=== PATIENT | female | born 1960 | race Caucasian/White ===

== ENCOUNTER 2017-04-03 11:18 | Emergency (ER) | payer OTHER ==
[~2017-04-03] VITALS: Ht 165.1 cm; Wt 64.6 kg
[2017-04-03 12:40] LABS: PATH.CAST-FLAG NOT PRESENT; SPERM-FLAG NOT PRESENT; SRC-FLAG NOT PRESENT; XTAL-FLAG NOT PRESENT; YLC-FLAG NOT PRESENT
[2017-04-03] MEDS ORDERED: KETOROLAC 30 MG/1 ML IVPush ONE (13:00)
[2017-04-03] MEDS ORDERED: SODIUM CHLORIDE FLUSH 10ML SYR IVF ONE (13:00)
[2017-04-03] MEDS ORDERED: ONDANSETRON 2MG/ML, 2ML IVPush ONE (13:00)
[2017-04-03] MEDS ORDERED: SODIUM CHLORIDE 0.9% 1,000ML IVBOLUS ONE (13:00)
[2017-04-03] MEDS ORDERED: KETOROLAC 30 MG/1 ML ONE (13:13)
[2017-04-03] MEDS ORDERED: ONDANSETRON 2MG/ML, 2ML ONE (13:13)
[2017-04-03 13:21] LABS: HEMATOCRIT 43.2 % (34.6-47.8); HEMOGLOBIN 14.7 g/dL (11.7-16.4); WHITE BLOOD COUNT 5.7 x10^3/uL (3.4-10)
[2017-04-03 13:29] LABS: ASPARTATE AMINO TRANSFERASE 15 U/L (15-37); BLOOD UREA NITROGEN 14 mg/dL (7-18)
[2017-04-03 13:43] VITALS: BP 109/74
[2017-04-03] MEDS ORDERED: CEFTRIAXONE PMX 1GM/50ML 50 ML ONE (14:14)
[2017-04-03] MEDS ORDERED: CEFTRIAXONE PMX 1GM/50ML 50 ML IV ONE (14:30)
== END 2017-04-03 15:06 | disposition home or self-care (01) ==
LOC: ED 15:00
DX: N39.0 Urinary tract infection, site not specified (principal)
CPT/HCPCS: 36415; 80053; 81001; 85025; 87086; 96361; 96374; 96375; 99284; J0696; J1885; J2405; J7030

== ENCOUNTER → 2020-05-11 | Outpatient (CLI) | payer OTHER | END | disposition home or self-care (01) | LOC: CFH 08:56 | PROVIDERS: ATTEND Physician Assistant | DX: Z12.31 Encounter for screening mammogram for malignant neoplasm of breast (principal); M81.0 Age-related osteoporosis without current pathological fracture; N95.8 Other specified menopausal and perimenopausal disorders | CPT/HCPCS: 77067; 77080 ==

== ENCOUNTER 2021-01-22 08:25 | Day surgery (SDC) | payer OTHER ==
[~2021-01-22] VITALS: Ht 167.6 cm; Wt 64.4 kg
[~2021-01-22 08:25] MED LIST: FLUT9.9S NAS
[2021-01-22 08:53] VITALS: BP 105/70
[2021-01-22] MEDS ORDERED: CHLORHEXIDINE 15 ML UDC ONE (08:58)
[2021-01-22] MEDS ORDERED: LACTATED RINGERS 1,000 ML IV SCH (09:00)
[2021-01-22] MEDS ORDERED: CHLORHEXIDINE 15 ML UDC PO ONE (09:00)
[2021-01-22] MEDS ORDERED: BUPIVACAINE/PF 0.5% ONE (09:55)
[2021-01-22] MEDS ORDERED: FENTANYL PF 100 MCG/2ML ONE ×2 (09:55→10:51)
[2021-01-22] MEDS ORDERED: EPINEPHRINE 1 MG/ML, 1ML ONE (09:55)
[2021-01-22] MEDS ORDERED: ONDANSETRON 2MG/ML, 2ML IVPush PRN ×2 (10:00)
[2021-01-22] MEDS ORDERED: LABETALOL 5MG/ML, 20ML IV PRN ×2 (10:00)
[2021-01-22] MEDS ORDERED: OXYcodone 5 MG/5 ML ORAL.SOL UDC PO PRN ×2 (10:00)
[2021-01-22] MEDS ORDERED: HYDROmorphone 1 MG/ML, 1ML INJ IVPush PRN ×2 (10:00)
[2021-01-22] MEDS ORDERED: hydrALAzine 20 MG/ML, 1ML IV PRN ×2 (10:00)
[2021-01-22] MEDS ORDERED: FENTANYL PF 100 MCG/2ML IV PRN ×2 (10:00)
[2021-01-22] MEDS ORDERED: PROMETHAZINE 25 MG/ML, 1ML IVPush PRN ×2 (10:00)
[2021-01-22] MEDS ORDERED: ACETAMINOPHEN 325 MG TABLET PO PRN ×2 (10:00)
[2021-01-22] MEDS ORDERED: MEPERIDINE/PF 25MG/0.5ML IVPush PRN ×2 (10:00)
[2021-01-22] MEDS ORDERED: OXYC5TAB2 PO (10:11)
[2021-01-22] MEDS ORDERED: CEFAZOLIN 1,000 MG ONE (10:15)
[2021-01-22] MEDS ORDERED: PROPOFOL 10 MG/ML, 20ML ONE (10:28)
[2021-01-22] MEDS ORDERED: ONDANSETRON 2MG/ML, 2ML ONE ×2 (10:28)
[2021-01-22] MEDS ORDERED: OXYcodone 5 MG/5 ML ORAL.SOL UDC ONE (10:51)
[2021-01-22] MEDS ORDERED: ACETAMINOPHEN 650 MG/20.3 ML UDC ONE (10:51)
== END 2021-01-22 12:15 | disposition home or self-care (01) ==
LOC: OUT 08:25
PROVIDERS: ATTEND Surgery
DX: D23.5 Other benign neoplasm of skin of trunk (principal); M81.0 Age-related osteoporosis without current pathological fracture; F17.210 Nicotine dependence, cigarettes, uncomplicated; Z98.890 Other specified postprocedural states; Z79.899 Other long term (current) drug therapy; Z91.018 Allergy to other foods; Z88.1 Allergy status to other antibiotic agents; Z20.822 Contact with and (suspected) exposure to COVID-19
CPT/HCPCS: 11104; 88304; 88341; 88342; 93005; J0171; J0690; J2405; J2704; J3010; J7120; U0003; U0005